=== PATIENT | female | born 1995 | race Caucasian/White ===

== ENCOUNTER 2018-03-22 19:18 | Observation (INO) ==
[2018-03-22 20:21] LABS: Bilirubin,Urine Negative (Negative); Blood,Urine Negative (Negative); Clarity,Urine Clear (Clear); Color,Urine Yellow (Yellow); Glucose,Urine (UA) Normal (Normal); Ketones,Urine Negative (Negative); Leukocyte Esterase,Urine Negative (Negative); Nitrite,Urine Negative (Negative); PH,Urine 6.5 pH Units (5.0-8.0); Protein,Urine Negative (Neg-Trace); Specific Gravity,Urine 1.014 (1.010-1.025); Urobilinogen,Urine Normal (Normal)
--- NOTE | 2018-03-22 20:35 | OB/GYN Progress Note ---
Date of Encounter: 03/22/18 Time of Encounter: 20:31 - Assessment and Plan (1) 35 weeks gestation of Current Visit: Yes Status: Acute UA - WNL UDS - negative Vaginosis panel - Yeast and Gardnerella. Electronically sent in terazole and metronidazole. Paper Rx copies given for backup if needed. Discharge home with PTL precautions Follow up in office with routine care and PRN (2) NST (non-stress test) reactive Current Visit: Yes Status: Acute (3) Vaginal spotting Current Visit: Yes Status: Acute Subjective - Subjective Principal diagnosis: Vaginal discharge and spotting Interval history: Ms Driscoll is a at 35 weeks 1 day that presents to labor and delivery with C/O vaginal discharge that began Thursday with cramping and vaginal spotting that began this evening. She denies intercourse in the past 24 hours. She states positive movement. She denies headaches, vision changes, epigastic pain, leaking of fluid, and cramping. She is seen by Dr Leblanc in the office. This has been complicated by GDM A2 and maternal obesity. Antepartum ROS: vaginal bleeding, movement normal, no new complaints, no loss of fluid, no contractions Objective - Vital Signs Vital Signs: Intake and Output 03/22/18 03/22/18 03/22/18 07:59 15:59 23:59 Other: Weight 101.2 kg Patient Weight 03/22/18 23:59 Weight 101.2 kg - Exam FHR: auscultation normal, category 1 FHR comments: No contractions. Baseline 130 Abdomen: Present: normal appearance, soft, gravid Uterus: Present: normal. Absent: firm, tenderness Comments: SSE - cervix visually closed. Moderate amount of thick, white, mucoid discharge in vaginal vault. No blood noted upon exam. Urethra appears WNL
[2018-03-22 20:49] LABS: Amphetamine Screen,Urine Negative ng/mL (Cutoff=1000); Barbiturate Screen,Urine Negative ng/mL (Cutoff=200); Benzodiazepines Screen,Urine Negative ng/mL (Cutoff=200); Cannabinoid Screen,Urine Negative ng/mL (Cutoff = 50); Cocaine Screen,Urine Negative ng/mL (Cutoff= 300); Opiate Screen,Urine Negative ng/mL (Cutoff=300); Phencyclidine Screen,Urine Negative ng/mL (Cutoff=25)
[2018-03-22 21:22] LABS: Candida DNA DETECTED (Not Detect); Gardnerella DNA DETECTED (Not Detect); Trichomonas DNA Not Detected (Not Detect)
== END 2018-03-22 21:38 | disposition home or self-care (01) ==
LOC: 1NENULAB
PROVIDERS: ADMIT Advanced Practice Midwife; ATTEND Advanced Practice Midwife

== ENCOUNTER 2018-04-16 04:28 | Inpatient (IN) ==
[~2018-04-16 04:28] MED LIST: *HR* Nalbuphine 10 MG/ML AMPUL IVP PRN; Famotidine 20 MG/2 ML VIAL IVP PRN; Metoclopramide 10 MG/2 ML VIAL IVP PRN; Naloxone 0.4 MG/ML INJ IVP PRN; Ondansetron 4 MG/2 ML VIAL IVP PRN
[2018-04-16] MEDS ORDERED: Ringers Solution, Lactated 1,000 ML IVC SCH (04:30)
--- NOTE | 2018-04-16 04:39 | OB/GYN History & Physical ---
Date of Encounter: 04/16/18 Time of Encounter: 04:34 Assessment and Plan (1) 38 weeks gestation of Current visit: Yes Status: Acute (2) SROM (spontaneous rupture of membranes) Current visit: Yes Status: Acute Admit to labor and delivery Nubain and epidural as desired GBS negative Monitor glucose every 2 hours Anticipate (3) Gestational diabetes mellitus (GDM) in childbirth, insulin controlled Current visit: Yes Status: Acute Monitor glucoses every 2 hours History of Present Illness Chief complaint: SROM HPI: Ms. Driscoll is a 23 year old female 38+ weeks gestation presents to triage with complaints of SROM at 2:30 this morning. Patient states she was going to restroom and her water broke, continued to leak fluid arriving in triage. Reports good movement, denies vaginal bleeding. care with Dr. Leblanc. course complicated by insulin-dependent gestational diabetes, large for gestational age infant EFW (9lb 2oz) 4127g >99% and AC >99%, anemia. Labs: O-, rubella and varicella immune, GBS negative, all other serologies negative Past Med Surg Social Fam HX - Past Medical History Medical history: no medical history Psychiatric history: no psych history - Past Surgical History Surgical History: no surgical history - Social History Smoking Status: Never smoker Smokeless Tobacco Status: No Alcohol use: none Drug use: none - Family History Mother Living Status: Still Living Obstetrical History - Pregnancies : 2 Para: 1 Term: 1 : 0 Ab's: 0 Livin Medications and Allergies Ferrous Sulfate [Iron] 325 mg PO DAILY 03/22/18 [History] Insulin LISPRO [HumaLOG] 15 unit SQ DAILY 03/22/18 [History] Insulin LISPRO [HumaLOG] 40 unit SQ DAILY 03/22/18 [History] Vit/Iron Fumarate/FA [ Tablet] 1 each PO DAILY 03/22/18 [ History] 3 Allergy/AdvReac Type Severity Reaction Status Date / Time No Known Allergies Allergy Verified 04/16/18 03:53 Exam - Constitutional Constitutional: well developed, well nourished, no acute distress - Neck Neck exam: full ROM - Lungs Respiratory exam: CTAB - Cardiovascular Cardiovascular exam: RRR - Abdomen Abdomen: Present: gravid, non tender - Extremities Extremities exam: normal capillary refill, normal inspection - Cervix Dilation: 3 Effacement: 80 Station: -2 Results All other labs normal. - VTE Reasons for not Prescribing Prophylaxis: Treatment not Indicated - Low risk for VTE
[2018-04-16 05:22] LABS: Basophils # 0.1 K/mcL (0.0-0.2); Basophils % 0.4 %; Eosinophils # 0.1 K/mcL (0.0-0.6); Eosinophils % 0.6 %; Hematocrit 30.9 % (35.3-44.9); Hemoglobin 9.7 g/dL (11.5-15.4); Immature Granulocytes % 1.2 % (0-4); Lymphocytes # 2.3 K/mcL (0.6-4.6); Lymphocytes % 20.5 %; Mean Corpuscular HGB Conc 31.4 g/dL (31.6-35.5); Mean Corpuscular Hemoglobin 26.6 pg (28.0-33.3); Mean Corpuscular Volume 84.7 fL (83.0-100.0); Mean Platelet Volume 11.5 fL (9.4-12.4); Monocytes # 0.8 K/mcL (0.0-1.3); Monocytes % 7.2 %; Neutrophils # 7.9 K/mcL (1.6-8.9); Platelet Count 197 K/mcL (140-400); Red Blood Count 3.65 M/mcL (3.82-4.97); Red Cell Distribution Width 15.3 % (11.5-14.5); Segmented Neutrophils % 70.1 %
--- NOTE | 2018-04-16 06:45 | Anesthesia Evaluation PreOp ---
Date of Encounter: 04/16/18 Time of Encounter: 06:43 - Past History Planned Operation: YAMILE Cardiac History: Denies any Significant Hx Pulmonary History: Denies Any Significant HX TENT ASSEMBLER History: Denies Any Significant HX Other Medical History: Diabetes Type II (BS 88), GERD Anesthesia History: No Prior Anesthetic Complications, Past Anesthesia (yamile, wisdom teeth) : Yes Test: Positive Alcohol Use: none Drug use: none Medications and Allergies Ferrous Sulfate [Iron] 325 mg PO DAILY 03/22/18 [History] Insulin LISPRO [HumaLOG] 15 unit SQ DAILY 03/22/18 [History] Insulin LISPRO [HumaLOG] 40 unit SQ DAILY 03/22/18 [History] Vit/Iron Fumarate/FA [ Tablet] 1 each PO DAILY 03/22/18 [ History] 3 Allergy/AdvReac Type Severity Reaction Status Date / Time No Known Allergies Allergy Verified 04/16/18 03:53 - Meds/Allergy Pre-op Review Medications Reviewed: Yes Allergies Reviewed: Yes Beta Blockers on Current Med List: No Anesthesia Results - Labs 04/16/18 04:55 Anesthesia Exam see nsg notes Height: 5'2" Weight: 100k NPO (# of Hours): 2 Pain Scale: 3 Pain Scale Used: Numeric (1 - 10) - HEENT Pupil (Motor): Pupils equal Mallampati: II Teeth: Normal Oral Opening: Greater than 3 - TENT ASSEMBLER LOC: Oriented TENT ASSEMBLER Motor: Normal RUE, Normal LUE, Normal RLE, Normal LLE, Normal Face TENT ASSEMBLER Sensory: Normal: RUE, LUE, RLE, LLE, Face - Cardiac Rhythm: Regular Murmur: None - Pulmonary Breath Sounds: bilateral Clear Respiratory Effort: Symmetrical Anesthesia Assess/Plan ASA Score: 2 Modified Pickett Scale for Level of Consciousness: Cooperative, oriented, and tranquil Anesthetic Plan: Regional Autologous Blood: No Monitoring Plan: Standard Monitors Recovery Plan: Other (risks discussed, questions answered, consented)
[2018-04-16 07:56] LABS: Amphetamine Screen,Urine Negative ng/mL (Cutoff=1000); Barbiturate Screen,Urine Negative ng/mL (Cutoff=200); Benzodiazepines Screen,Urine Negative ng/mL (Cutoff=200); Cannabinoid Screen,Urine Negative ng/mL (Cutoff = 50); Cocaine Screen,Urine Negative ng/mL (Cutoff= 300); Opiate Screen,Urine Negative ng/mL (Cutoff=300); Phencyclidine Screen,Urine Negative ng/mL (Cutoff=25)
[2018-04-16] MEDS ORDERED: Bupivacaine-MPF 0.25% 10 ML VIAL EP ONE (10:13)
[2018-04-16] MEDS ORDERED: *HR* FentaNYL (PF) 100 MCG/2 ML VIAL EP ONE (10:13)
[2018-04-16] MEDS ORDERED: Epidural Premix (fent/bupiv) 110 ML EP SCH (10:15)
[2018-04-16] MEDS ORDERED: Lidocaine -MPF 2% 5 ML VIAL ONE (10:17)
[2018-04-16] MEDS ORDERED: Bupivacaine-MPF 0.25% 10 ML VIAL ONE ×2 (10:17→16:39)
[2018-04-16] MEDS ORDERED: Lidocaine/EPI 1:200k 2% PF 20 ML VIAL ONE (10:19)
--- NOTE | 2018-04-16 11:09 | Anesthesia Procedures ---
Date of Encounter: 04/16/18 Time of Encounter: 10:24 Procedures: Anesthesia - Epidural/Spinal Patient ID/Chart reviewed: Yes Patient examined: Yes OB Eval: Gestational age: 38 OB Eval: : 2 OB Eval: Hx Para: 1 OB Eval: Dilated at (cm): 3 OB Eval: Contractions: Non-stressed pattern Consent Obtained: Yes Supplemental Oxygen: None/Room Air Site Prep: Aseptic Technique, Sterile prep and drape, Povidone-Iodine 1% Patient position: upright Local Anesthetic: Lidocaine 1% Amount of Local Anesthetic used: 5 Touhy Needle Gauge: 18 Touhy Needle Depth (cm): 7 Catheter Depth at Skin (cm): 20 Test Dose (1.5% Lido + Epi): Volume given (mls): 3 Test Dose Result: Negative Loading Dose: 0.25% Marcaine (mls): 8 Loading Dose: Fentanyl (mcg): 100 Loading Dose Administered: Thru Catheter Infusion Med: 0.125% Bupivacaine w/ 2 mcg/ml Fentanyl Infusion Rate (mls/hr): [address]: Tegaderm, Tape Interspace Used: L2-L3 Loss of Resistance (ESTEFANI): Yes Blood: No CSF: No Paresthesia: No Vitals + FHT's: 3 Vital Signs Time 1024 1044 1045 1050 105 BP 106/55 141/69 105/58 106/64 110/69 Pulse 115 93 74 77 75 FHTs 120 120 130 120 130
--- NOTE | 2018-04-16 12:11 | OB Labor Progress Note ---
Date of Encounter: 04/16/18 Time of Encounter: 12:09 Labor Progress Note - Subjective Subjective: Patient resting comfortably in bed. Epidural in place. - Vital Signs Vital Signs: VSS - Cervix Cervix: 4-5/100/-2 - Heart Tones Heart Tones: 125 category I - [place]: Contractions every 2-3 minutes - Plan Plan: Continue routine labor management GBS negative Consider pitocin if needed for adequate labor Consider primary if descent does not occur POC per consult with Dr Abel.
--- NOTE | 2018-04-16 14:10 | OB Labor Progress Note ---
Date of Encounter: 04/16/18 Time of Encounter: 14:08 Labor Progress Note - Subjective Subjective: Patient resting comfortably - Vital Signs Vital Signs: VSS - Cervix Cervix: 6/100/-1 to 0 - Heart Tones Heart Tones: 130 category I - [place]: COntractions every 2-3 minutes - Interventions Interventions: IUPC and FSE placed without difficulty. Patient and fetus tolerated well. - Plan Plan: Continue routine labor management GBS negative Consider pitocin if needed for adequate contractions Anticipate vaginal delivery POC per consult with Dr Abel
[2018-04-16] MEDS ORDERED: D5% in 0.9% NACL 1,000 ML IVC SCH (14:15)
[2018-04-16] MEDS ORDERED: D5% in Lactated Ringers 1,000 ML IVC ONE (14:19)
[2018-04-16] MEDS ORDERED: D5% in Lactated Ringers 1,000 ML IVC SCH (14:30)
[2018-04-16] MEDS ORDERED: Oxytocin 20 units/ LR 1000 mL 20 UNIT/1,000 ML BAG IVC SCH ×2 (14:45→21:15)
[2018-04-16] MEDS ORDERED: *HR* FentaNYL (PF) 100 MCG/2 ML VIAL ONE (16:39)
--- NOTE | 2018-04-16 16:59 | Anesthesia Progress Note ---
Date of Encounter: 04/16/18 Time of Encounter: 16:40 Anesthesia Note - Note Note: 04/16/18 16:56 called to LDR 8 for complaints of pain with contractions, low abdomen, 04/19. Patient is 9 cm, 0 station. epidural functioning. Bolused with 8ml 0.25% bupivacaine and 100mcg fentanyl. Patient tolerated well with stable vs and FHTs. Reported decreasing pain after bolus.
--- NOTE | 2018-04-16 18:18 | OB/GYN Procedure Note ---
Delivery - Delivery Date: 04/16/18 Provider: Katelyn Abel Intrapartum events: none Delivery augmentation: pitocin Delivery monitor: external FHT, external uterine, internal FHT, internal uterine Anesthesia: epidural Quantitated Blood Loss: 50 - Infant (s) Infant A Infant Delivery Date: 04/16/18 Infant Delivery Time: 17:47 Presentation: vertex Position: JAYCE Route of delivery: Gender: Male Viability: Viable Pounds: 8 Ounces: 8 Weight Gram: 3.855 kg at 1 minute: 9 at 5 mins: 10 Shoulder Dystocia: not encountered Specimens collected: cord blood Placenta: spontaneous Cord: nuchal cord, 3 umbilical vessels, nuchal reduced - Repair Episiotomy: none Laceration Description: None - Complications Delivery complications: none Delivery comments: The patient was complete and pushing with epidural anesthesia was a spontaneous vaginal delivery, JAYCE position rotated to JAIME, with nuchal cord 1 reduced, of a vigorous male infant weighing 8 lbs. 8 oz. with Apgars of 9 at 1 minute and 10 at 5 minutes. was placed on maternal abdomen. Cord was clamped and cut after pulsations ceased. Cord blood was obtained. Placenta was delivered spontaneous and intact. No lacerations noted. Estimated blood loss 50 mL's. Complications none. Both mother and infant recovering in stable condition in the LDR. - Disposition Mom disposition: stable in LDR disposition: stable in LDR
[2018-04-16] MEDS ORDERED: Rho Immune Globulin 1,500 UNIT SYRINGE IM PRN (21:15)
[2018-04-16] MEDS ORDERED: Acetaminophen 325 MG TABLET PO PRN (21:15)
[2018-04-16] MEDS: Ibuprofen 600 MG TABLET PO SCH (22:53)
--- NOTE | 2018-04-16 23:39 | OB/GYN Procedure Note ---
Delivery - Delivery Date: 04/16/18 Provider: Katelyn Abel Intrapartum events: none Delivery augmentation: pitocin Delivery monitor: external FHT, external uterine, internal FHT, internal uterine Anesthesia: epidural - (s) Infant A Infant Delivery Date: 04/16/18 Delivery Time: 17:47 Presentation: vertex Position: JAYCE Route of delivery: Gender: Male Viability: Viable Pounds: 8 Ounces: 8 Weight Gram: 3.855 kg at 1 minute: 9 at 5 mins: 10 Shoulder Dystocia: not encountered Specimens collected: cord blood Placenta: spontaneous Cord: nuchal cord, 3 umbilical vessels, nuchal reduced - Repair Episiotomy: none Laceration Description: None - Complications Delivery complications: none - Disposition Mom disposition: stable in LDR disposition: stable in LDR
[2018-04-17 03:08] LABS: Basophils % 0.3 %; Eosinophils % 0.3 %; Hematocrit 28.2 % (35.3-44.9); Hemoglobin 8.8 g/dL (11.5-15.4); Immature Granulocytes % 0.8 % (0-4); Lymphocytes # 1.9 K/mcL (0.6-4.6); Mean Corpuscular HGB Conc 31.2 g/dL (31.6-35.5); Mean Corpuscular Hemoglobin 26.4 pg (28.0-33.3); Mean Corpuscular Volume 84.7 fL (83.0-100.0); Mean Platelet Volume 11.8 fL (9.4-12.4); Monocytes # 1.2 K/mcL (0.0-1.3); Monocytes % 8.5 %; Platelet Count 179 K/mcL (140-400); Red Blood Count 3.33 M/mcL (3.82-4.97); Red Cell Distribution Width 15.4 % (11.5-14.5); Segmented Neutrophils % 77.1 %
[2018-04-17] MEDS ORDERED: *HR* GlyBURIDE 2.5 MG TABLET PO SCH (08:00)
[2018-04-17] MEDS ORDERED: Prenatal Vit/FA 1 EACH TABLET PO SCH (09:00)
--- NOTE | 2018-04-17 10:00 | Discharge Summary ---
Date of Encounter: 04/17/18 Time of Encounter: 09:57 - Discharge Diagnosis (1) Vaginal delivery Priority: Primary Status: Acute Comments: Pain well controlled with by mouth pain meds Tolerating regular diet Ambulating independently Voiding independently Passing flatus, no BM yet Lochia light Discharge home today (2) anemia Priority: Secondary Status: Acute Comments: Continue iron supplementation twice daily for 3 months (3) Breast feeding status of mother Priority: Secondary Status: Acute Comments: Community resources provided - Discharge Medications Prescriptions: Ibuprofen [Motrin] 600 mg PO Q6HR #30 tablet Docusate [Colace] 100 mg PO BID #60 capsule Ferrous Sulfate [Iron] 325 mg PO BID #60 tablet Home Medications: Vit/Iron Fumarate/FA [ Tablet] 1 each PO DAILY 03/22/18 [ History] Acetaminophen [Tylenol] 650 mg PO Q6HR PRN tablet 04/17/18 [Rx] Docusate [Colace] 100 mg PO BID #60 capsule 04/17/18 [Rx] Ferrous Sulfate [Iron] 325 mg PO BID #60 tablet 04/17/18 [Rx] Ibuprofen [Motrin] 600 mg PO Q6HR #30 tablet 04/17/18 [Rx] Allergies/Adverse Reactions: 3 Allergy/AdvReac Type Severity Reaction Status Date / Time No Known Allergies Allergy Verified 04/16/18 03:53 Data Procedures and tests throughout hospitalization: Laboratory Tests 04/16/18 04/16/18 04/16/18 04:52 04:55 05:45 WBC 11.3 H RBC 3.65 L Hgb 9.7 L Hct 30.9 L MCV 84.7 MCH 26.6 L MCHC 31.4 L RDW 15.3 H Plt Count 197 MPV 11.5 Immature Gran % 1.2 Seg Neutrophils % 70.1 Lymphocytes % 20.5 Monocytes % 7.2 Eosinophils % 0.6 Basophils % 0.4 Neutrophils # 7.9 Lymphocytes # 2.3 Monocytes # 0.8 Eosinophils # 0.1 Basophils # 0.1 POC Glucose 82 Urine Opiates Screen Negative Ur Barbiturates Screen Negative Ur Phencyclidine Scrn Negative Ur Amphetamines Screen Negative U Benzodiazepines Scrn Negative Urine Cocaine Screen Negative U Marijuana (THC) Screen Negative Ur Drug Screen Interp See Below 04/16/18 04/16/18 04/16/18 07:29 13:57 15:59 WBC RBC Hgb Hct MCV MCH MCHC RDW Plt Count MPV Immature Gran % Seg Neutrophils % Lymphocytes % Monocytes % Eosinophils % Basophils % Neutrophils # Lymphocytes # Monocytes # Eosinophils # Basophils # POC Glucose 74 72 104 H Urine Opiates Screen Ur Barbiturates Screen Ur Phencyclidine Scrn Ur Amphetamines Screen U Benzodiazepines Scrn Urine Cocaine Screen U Marijuana (THC) Screen Ur Drug Screen Interp 04/17/18 02:23 WBC 14.3 H RBC 3.33 L Hgb 8.8 L Hct 28.2 L MCV 84.7 MCH 26.4 L MCHC 31.2 L RDW 15.4 H Plt Count 179 MPV 11.8 Immature Gran % 0.8 Seg Neutrophils % 77.1 Lymphocytes % 13.0 Monocytes % 8.5 Eosinophils % 0.3 Basophils % 0.3 Neutrophils # 11.0 H Lymphocytes # 1.9 Monocytes # 1.2 Eosinophils # 0.0 Basophils # 0.0 POC Glucose Urine Opiates Screen Ur Barbiturates Screen Ur Phencyclidine Scrn Ur Amphetamines Screen U Benzodiazepines Scrn Urine Cocaine Screen U Marijuana (THC) Screen Ur Drug Screen Interp Labs on day of discharge: Labs from last 24 hours 04/17/18 04/16/18 04/16/18 02:23 15:59 13:57 WBC 14.3 H RBC 3.33 L Hgb 8.8 L Hct 28.2 L MCV 84.7 MCH 26.4 L MCHC 31.2 L RDW 15.4 H Plt Count 179 MPV 11.8 Immature Gran % 0.8 Seg Neutrophils % 77.1 Lymphocytes % 13.0 Monocytes % 8.5 Eosinophils % 0.3 Basophils % 0.3 Neutrophils # 11.0 H Lymphocytes # 1.9 Monocytes # 1.2 Eosinophils # 0.0 Basophils # 0.0 POC Glucose 104 H 72 Date of admission: 04/16/18 03:28 Primary care physician: Jennifer Dickinson CNP Consults: 04/16/18 21:15 Consult to [employer] [CONS] Routine Comment: Vaginal delivery, consult needed Discharging clinician: Felicita Donaldson Anticipated date of discharge: 04/17/18 - Patient Status Disposition: Home, Self-Care Condition: Good Functional capacity at discharge: independent ambulation Overall status at discharge: patient is progressing back to baseline - Discharge Instructions Follow Up With: Jennifer Dickinson CNP [Primary Care Provider] - Sharon Leblanc DO [Partnered Physician] - - Diet and Activity Activity: increase activity as tolerated Diet: regular diet Hospital Course Reason for admission: rupture of membranes, IUP at term Delivery: Episiotomy: none Laceration: none Other procedures: none complications: none Discharge diagnosis: IUP at term delivered [place] baby: male Time Attestation: Total time spent providing and/or coordinating discharge services: Time Spent: Less than 30 minutes Exam - Constitutional Vitals: Temp Pulse Resp BP Pulse Ox 98.1 F 72 14 121/78 99 04/17/18 07:58 04/17/18 07:58 04/17/18 07:58 04/17/18 07:58 04/17/18 07:58 General appearance IM: A&O X 3 - Respiratory Respiratory exam: Present: CTAB - Cardiovascular Cardiovascular exam IM: Present: RRR, +S1, +S2 - GI/Abdominal GI/Abdominal exam IM: normal bowel sounds, no peritoneal signs - Rectal Rectal exam: deferred - Uterine Tone: Firm Uterus Position: At Umbilicus, Midline - Extremities Exam Extremities exam IM: Present: normal capillary refill, normal inspection, radial pulses palpable and symmetrical - Neurological Exam Neurological exam: alert, CN II-XII intact, normal gait, oriented X3, reflexes normal, no focal deficits, strengths equal and symetr throughout - Psychiatric Additional comments: Patient denies history of anxiety or depression. Signs and symptoms of depression discussed with patient and she verbalizes understanding of when to seek help. - Other Additional findings: Breasts: Soft, nontender; nipples intact without erythema.
[2018-04-17] MEDS: Ibuprofen 600 MG TABLET PO SCH (14:02)
[2018-04-17 14:10] VITALS: BP 103/71
== END 2018-04-17 18:00 | disposition home or self-care (01) | DRG 775 ==
LOC: 1NENULAB → 1NENUOBS 21:13
PROVIDERS: ADMIT Advanced Practice Midwife; ATTEND Advanced Practice Midwife

== ENCOUNTER → 2021-11-03 21:59 | Observation (INO) ==
[2021-11-03 20:36] VITALS: BP 112/69; TEMP 98.5
[2021-11-03 21:14] LABS: Basophils # 0.1 K/mcL (0.0-0.2); Basophils % 0.6 %; Eosinophils # 0.1 K/mcL (0.0-0.6); Eosinophils % 0.9 %; Hematocrit 30.7 % (35.3-44.9); Hemoglobin 10.1 g/dL (11.5-15.4); Immature Granulocytes % 2.3 % (0-4); Lymphocytes # 2.7 K/mcL (0.6-4.6); Lymphocytes % 20.6 %; Mean Corpuscular HGB Conc 32.9 g/dL (31.6-35.5); Mean Corpuscular Hemoglobin 28.7 pg (28.0-33.3); Mean Corpuscular Volume 87.2 fL (83.0-100.0); Monocytes # 0.9 K/mcL (0.0-1.3); Neutrophils # 8.8 K/mcL (1.6-8.9); Platelet Count 186 K/mcL (140-400); Red Blood Count 3.52 M/mcL (3.82-4.97); Segmented Neutrophils % 68.6 %; White Blood Count 12.9 K/mcL (4.3-11.1)
[2021-11-03 21:15] LABS: Bacteria,Urine Few per hpf (None-Few); Bilirubin,Urine Negative (Negative); Blood,Urine Negative (Negative); Clarity,Urine Clear (Clear); Color,Urine Light-Yellow (Yellow); Glucose,Urine (UA) Normal (Normal); Ketones,Urine 10 mg/dL (Negative); Leukocyte Esterase,Urine Negative (Negative); Mucus,Urine Few per lpf (None-Few); Nitrite,Urine Negative (Negative); PH,Urine 6.5 pH Units (5.0-8.0); Protein,Urine Negative (Neg-Trace); RBC,Urine 0-3 per hpf (0-3); Specific Gravity,Urine 1.011 (1.010-1.025); Squamous Epithelial Cell,Urine Few per hpf (None-Few); Urobilinogen,Urine Normal (Normal); WBC,Urine 0-3 per hpf (0-3)
[2021-11-03 21:22] LABS: Alanine Aminotransferase 11 Units/L (7-52); Aspartate Amino Transferase 13 Units/L (13-39); BUN/Creatinine Ratio 14 (6-26); Blood Urea Nitrogen 6 mg/dL (6-20); Glucose 87 mg/dL (70-105); Lactate Dehydrogenase 133 Units/L (140-271); Uric Acid 4.1 mg/dL (2.3-7.6); eGFR For African Americans > 60 (> 60); eGFR For Non-African Americans > 60 (> 60)
[2021-11-03 21:34] LABS: Protein/Creatinine Ratio,Urine 0.12 mg/mg (0.00-0.20)
== END | disposition home or self-care (01) ==
LOC: 1NENULAB
PROVIDERS: ADMIT Advanced Practice Midwife; ATTEND Advanced Practice Midwife

== ENCOUNTER 2021-11-27 08:02 | Inpatient (IN) ==
[2021-11-27] MEDS ORDERED: Lidocaine 1% 20 ML MDV INFILT PRN (08:28)
[2021-11-27] MEDS ORDERED: *HR* Nalbuphine 10 MG/ML AMPUL IV PRN (08:28)
[2021-11-27] MEDS ORDERED: Famotidine 20 MG/2 ML VIAL IVP PRN (08:28)
[2021-11-27] MEDS ORDERED: Ondansetron 4 MG/2 ML VIAL IVP PRN ×2 (08:28→10:01)
[2021-11-27] MEDS ORDERED: Metoclopramide 10 MG/2 ML VIAL IVP PRN (08:28)
[2021-11-27 09:28] LABS: Amphetamine Screen,Urine Negative ng/mL (Cutoff=1000); Barbiturate Screen,Urine Negative ng/mL (Cutoff=200); Benzodiazepines Screen,Urine Negative ng/mL (Cutoff=200); Cannabinoid Screen,Urine Negative ng/mL (Cutoff = 50); Cocaine Screen,Urine Negative ng/mL (Cutoff= 300); Opiate Screen,Urine Negative ng/mL (Cutoff=300); Phencyclidine Screen,Urine Negative ng/mL (Cutoff=25)
[2021-11-27] MEDS ORDERED: Oxytocin 30 UNIT/503 ML BAG IVC ONE (10:00)
[2021-11-27] MEDS ORDERED: Naloxone 0.4 MG/ML INJ IVP PRN (10:01)
[2021-11-27] MEDS ORDERED: Ropivacaine/PF 0.2% 20 ML VIAL EP ONE (10:01)
[2021-11-27] MEDS ORDERED: *HR* FentaNYL (PF) 100 MCG/2 ML VIAL EP ONE (10:01)
[2021-11-27] MEDS ORDERED: EPHEDrine 50 MG/ML VIAL IVP PRN (10:01)
[2021-11-27 10:11] LABS: Basophils # 0.1 K/mcL (0.0-0.2); Basophils % 0.4 %; Eosinophils # 0.1 K/mcL (0.0-0.6); Eosinophils % 0.6 %; Hemoglobin 10.7 g/dL (11.5-15.4); Immature Granulocytes % 2.4 % (0-4); Lymphocytes # 2.3 K/mcL (0.6-4.6); Lymphocytes % 18.7 %; Mean Corpuscular HGB Conc 32.4 g/dL (31.6-35.5); Mean Corpuscular Hemoglobin 28.5 pg (28.0-33.3); Mean Platelet Volume 11.9 fL (9.4-12.4); Monocytes # 0.9 K/mcL (0.0-1.3); Monocytes % 7.4 %; Neutrophils # 8.5 K/mcL (1.6-8.9); Platelet Count 181 K/mcL (140-400); Red Blood Count 3.75 M/mcL (3.82-4.97); Red Cell Distribution Width 14.6 % (11.5-14.5); Segmented Neutrophils % 70.5 %; White Blood Count 12.1 K/mcL (4.3-11.1)
[2021-11-27] MEDS ORDERED: Epidural Premix (fent/bupiv) 110 ML EP SCH (10:15)
[2021-11-27] MEDS: Ringers Solution, Lactated 1,000 ML IVC SCH ×2 (10:17→21:29)
[2021-11-27] MEDS: Oxytocin 30 UNIT/503 ML BAG IVC SCH (10:17)
[2021-11-27] MEDS ORDERED: Ropivacaine/PF 0.2% 20 ML VIAL ONE (18:32)
[2021-11-27] MEDS: Acetaminophen 325 MG TABLET PO PRN (20:35)
[2021-11-28] MEDS: Ringers Solution, Lactated 1,000 ML IVC SCH (03:05)
[2021-11-28] MEDS ORDERED: Ropivacaine/PF 0.2% 20 ML VIAL ONE (06:48)
[2021-11-28] MEDS: Acetaminophen 325 MG TABLET PO PRN (07:11)
[2021-11-28] MEDS: Oxytocin 30 UNIT/503 ML BAG IVC SCH (09:37)
[2021-11-28] MEDS ORDERED: Rho Immune Globulin 1,500 UNIT SYRINGE IM PRN (11:33)
[2021-11-28] MEDS ORDERED: Lanolin 7 G OINT...G. TP PRN (11:33)
[2021-11-28] MEDS ORDERED: Oxytocin 30 UNIT/503 ML BAG IVC SCH (11:33)
[2021-11-28] MEDS ORDERED: OXYTOCIN/RINGERS LACTATE 10 UNIT/166.6 ML BAG IVC ONE (11:33)
[2021-11-28] MEDS ORDERED: Ondansetron ODT 4 MG TAB.RAPDIS SL PRN (11:33)
[2021-11-28] MEDS: Prenatal Vit/FA 1 EACH TABLET PO SCH (13:04)
[2021-11-28] MEDS: Ibuprofen 600 MG TABLET PO SCH ×4 (13:04→21:13)
[2021-11-28] MEDS: Acetaminophen 325 MG TABLET PO SCH ×4 (13:04→21:13)
[2021-11-29 05:45] LABS: Basophils # 0.1 K/mcL (0.0-0.2); Basophils % 0.5 %; Eosinophils # 0.1 K/mcL (0.0-0.6); Eosinophils % 1.2 %; Hematocrit 30.6 % (35.3-44.9); Hemoglobin 9.6 g/dL (11.5-15.4); Immature Granulocytes % 2.5 % (0-4); Lymphocytes # 2.8 K/mcL (0.6-4.6); Lymphocytes % 24.5 %; Mean Corpuscular HGB Conc 31.4 g/dL (31.6-35.5); Mean Corpuscular Hemoglobin 28.1 pg (28.0-33.3); Mean Corpuscular Volume 89.5 fL (83.0-100.0); Mean Platelet Volume 11.7 fL (9.4-12.4); Monocytes # 0.9 K/mcL (0.0-1.3); Monocytes % 7.4 %; Neutrophils # 7.3 K/mcL (1.6-8.9); Platelet Count 171 K/mcL (140-400); Red Blood Count 3.42 M/mcL (3.82-4.97); Red Cell Distribution Width 14.6 % (11.5-14.5); Segmented Neutrophils % 63.9 %; White Blood Count 11.4 K/mcL (4.3-11.1)
[2021-11-29 06:44] VITALS: BP 125/86; PULSE 68; TEMP 97.8; O2SAT 100
[2021-11-29] MEDS: Acetaminophen 325 MG TABLET PO SCH (08:30)
[2021-11-29] MEDS: Ibuprofen 600 MG TABLET PO SCH (08:31)
[2021-11-29] MEDS: Prenatal Vit/FA 1 EACH TABLET PO SCH (08:31)
== END 2021-11-29 12:00 | disposition home or self-care (01) | DRG 807 ==
LOC: 1NENULAB 08:02 → 1NENUOBS 11-28 10:55
PROVIDERS: ADMIT Obstetrics & Gynecology; ATTEND Obstetrics & Gynecology